=== PATIENT | male | born 1995 | race Caucasian/White ===

== ENCOUNTER 2018-01-19 15:37 | Emergency (ER) | payer OTHER ==
[~2018-01-19] VITALS: Ht 175.3 cm; Wt 80.0 kg
[2018-01-19 15:39] VITALS: TEMP 36.3; Ht 175.3 cm; Wt 80.0 kg
[2018-01-19] MEDS ORDERED: LIDOCAINE/EPINEPH/TETRACAINE 1 EA SYR EXT STA (15:53)
[2018-01-19] MEDS ORDERED: ASCO500C3 PO (16:09)
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
[2018-01-19 17:05] VITALS: BP 141/82; PULSE 96; O2SAT 95
== END 2018-01-19 17:06 | disposition home or self-care (01) ==
LOC: C.EDB 15:39 → C.EDD 17:06
DX: S09.90XA Unspecified injury of head, initial encounter (principal); S01.01XA Laceration without foreign body of scalp, initial encounter; W50.0XXA Accidental hit or strike by another person, initial encounter